=== PATIENT | female | born 1935 | race Caucasian/White ===

== ENCOUNTER 2018-08-22 12:03 | Emergency (ER) | payer MEDICAID ==
[~2018-08-22] VITALS: Wt 67.0 kg
--- NOTE | 2018-08-22 13:57 | ERD ---
ER Documentation Chief Complaint Chief Complaint OFF MEDS NEEDS FOR HTN,DM, ASYMPTOMATIC, JUST GOT MEDICAL HPI 83-year-old female, with history of hypertension diabetes, presents to the [facility] department, requesting a refill for her medications. The patient is currently asymptomatic, she denies chest pain, no shortness of breath, no dizziness, no rashes, no abdominal pain, no leg edema. ROS All systems reviewed and are negative except as per history of present illness. Medications Home Meds Active Scripts Metformin Hcl* (Metformin Hcl*) 850 Mg Tablet, 850 MG PO WITH BREAKFAST DINNE, #60 TAB Prov:SHAWN PRASAD MD 08/22/18 Enalapril Maleate* (Enalapril Maleate*) 20 Mg Tablet, 20 MG PO DAILY, #30 TAB Prov:SHAWN PRASAD MD 08/22/18 PMhx/Soc Personal history of hypertension and diabetes. FmHx Family History: diabetes; No coronary disease Physical Exam Vitals Vital Signs Date Temp Pulse Resp B/P (MAP) Pulse Ox O2 O2 Flow FiO2 Time Delivery Rate 08/22/18 98.1 85 18 125/71 99 12:09 (89) Physical Exam Const: No acute distress Head: Atraumatic Eyes: Normal Conjunctiva ENT: Normal External Ears, Nose and Mouth. Neck: Full range of motion. No meningismus. Resp: Clear to auscultation bilaterally Cardio: Regular rate and rhythm, no murmurs Abd: Soft, non tender, non distended. Normal bowel sounds Skin: No petechiae or rashes Back: No midline or flank tenderness Ext: No cyanosis, or edema Neur: Awake and alert Psych: Normal Mood and Affect Procedures/MDM Vital signs stable. Differential diagnosis considered include uncontrolled hypertension, hypertensive crisis, hypertensive urgency, hypertensive emergency. Low suspicion for acute end organ damage. During the ED course the patient remained stable, no new complaints. clinical impression discussed with the patient who agrees with management. The patient is stable to be treated outpatient and will be discharged home; some side effects of prescribed medications (headache, rash, nausea, vomiting, diarrhea, drowsiness, habituation, bleeding, hypertension, interactions with other medications) were reviewed. Follow up with the primary care provider in the next 48h has been recommended. If symptoms persist, worsen or new symptoms develop, then patient should return to the ED immediately. Instructions explained and given directly by me to the patient with acknowledgment and demonstrated understanding. Disclaimer: Inadvertent spelling and grammatical errors are likely due to EHR/dictation software use and do not reflect on the overall quality of patient care. Also, please note that the electronic time recorded on this note does not necessarily reflect the actual time of the patient encounter. Departure Diagnosis: Primary Impression: Encounter for medication refill Additional Impressions: History of hypertension History of diabetes mellitus, type II Condition: Stable Additional Instructions: Muchas micaela por [facility] para [facility]owell servicio. Esperamos que en [facility]cdowell visita a la amilcar de emergencia mcdowell problema medico haya sido solucionado y que se sienta mucho mejor. Para estar seguros que mcdowell mejoria sigue en proceso, le pedimos el favor de hacer juli adams de seguimiento medico con [facility]owell doctor primario en los proximos 2-4 teresa. Lleve con usted estos documentos y las medicinas recetadas. Si judith sintomas empeoran, NO SE ESPERE, por favor regrese a amilcar de emergencia INMEDIATAMENTE. En arelis que usted no tenga un mdico de atencin primaria: Llame al mdico o clnica comunitaria de referencia que aparece abajo raffy las horas de consultorio para hacer juli adams para que le vean. CLINICAS: [facility] [phone] [facility] [phone] [facility] [phone] [facility] [phone] [facility] [phone] [facility]. [phone] SHAWN MCDOWELL MD Aug 22, 2018 13:57
[2018-08-22] MEDS ORDERED: METF850T13 PO (14:12)
[2018-08-22] MEDS ORDERED: ENAL20TA PO (14:12)
[2018-08-22 14:31] VITALS: BP 119/75; PULSE 81; RESP 18
== END 2018-08-22 14:27 | disposition home or self-care (01) ==
LOC: FTE 12:03
DX: Z76.0 Encounter for issue of repeat prescription (principal); I10 Essential (primary) hypertension; E11.9 Type 2 diabetes mellitus without complications; Z79.84 Long term (current) use of oral hypoglycemic drugs
CPT/HCPCS: 99281